=== PATIENT | male | born 1955 | race Caucasian/White ===

== ENCOUNTER → 2022-12-10 | Outpatient (CLI) | payer OTHER, SELFPAY ==
[2022-12-12 09:07] LABS: PSA, Free 0.54 ng/mL; PSA, Free % 14.6 % (.)
== END | disposition home or self-care (01) ==
PROVIDERS: PCP Family Medicine; Referring Provider Family Medicine; Visit Provider Family Medicine
DX: R97.20 Elevated prostate specific antigen [PSA] (principal)
CPT/HCPCS: 36415; 84153; 84154

== ENCOUNTER → 2023-07-27 | Outpatient (CLI) | payer OTHER, SELFPAY ==
[2023-07-27 12:59] LABS: PSA,Total- Diagnostic 3.19 ng/mL (0.0-4.0)
== END | disposition home or self-care (01) ==
LOC: BFHLAB 08:27
PROVIDERS: PCP Family Medicine; Visit Provider Urology
DX: R97.20 Elevated prostate specific antigen [PSA] (principal)
CPT/HCPCS: 36415; 84153

== ENCOUNTER 2024-06-25 15:13 | Day surgery (SDC) | payer MEDICARE, SELFPAY ==
[2024-06-25 15:41] VITALS: BP 185/101; PULSE 84; RESP 20; TEMP 37.3; O2SAT 100; BMI 37.0
--- NOTE | 2024-06-25 15:58 | EKG12_ITS ---
Test Reason : PRE OP Blood Pressure : */* mmHG Vent. Rate : 77 BPM Atrial Rate : 77 BPM P-R Int : 168 ms QRS Dur : 98 ms QT Int : 408 ms P-R-T Axes : 13 -34 55 degrees QTcB Int : 461 ms Normal sinus rhythm Left axis deviation Moderate voltage criteria for LVH, may be normal variant ( R in aVL , Eddie product ) Abnormal ECG No previous ECGs available Baseline artifact Confirmed by Bhupinder Montez ([id number]), digital editor NGOC FRANCOIS ([id number]) on 06/27/2024 7:03:22 AM Referred By: VICK Confirmed By: Bhupinder Montez
--- NOTE | 2024-06-25 16:00 | PCM.PRE.AN2 ---
ASA Classification* ASA Classification ASA Classification: 2 and E Assessment & Plan Anesthesia* Anesthesia Assessment Anesthesia Assessment: Discussed sedation and/or anesthesia options, risks, benefits, and alternatives with patient/parents/legal guardian/POA. Questions invited. The patient/parents/legal guardian/POA seems to understand and agrees to proceed with anesthesia plan. Reviewed the physical assessment, medical history, allergy history and patient home medications list prior to surgery/procedure/anesthetic and documented any changes. Performed airway and anesthesia risk assessments. Anesthesia Type Anesthesia Type: Spinal (breakfast at 1030 AM. patient aware that sedation may be less due to full stomach. 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 When Was Last Pacemaker Check QUESTION #4 FULL TEXT: You/Your Family Experience fever (hyperthermia) with Anesthesia Last Oral Intake Last Oral intake: Last Oral Intake NPO since 22:30 06/25/24 15:41 Meds taken in AM with sips of water? Meds patient instructed to take am of surgery PONV PONV - pick pack worker: PONV - pick pack worker Female HX of Motion Sickness HX of N/V After Surgery Non-Smoker Duration of Surgery greater than 60 minutes Number of Risk Factors PONV Score Height & Weight Height & Weight: Anesthesia: Height & Weight Height 6 ft 06/25/24 15:41 Weight: 124 kg 06/25/24 15:41 Body Mass Index (BMI) 37.0 06/25/24 15:41 Respiratory Assessment Respiratory Assessment - pick pack worker: Respiratory Tract Infection Hx - pick pack worker Hx Respiratory Tract Infection STOP Sleep Apnea STOP Sleep Apnea - pick pack worker: STOP Sleep Apnea - pick pack worker Hx Hypertension Hx Sleep Apnea CPAP BIPAP Do you snore loudly (louder than talking or can be heard Do you often feel tired/ fatigued/ sleepy during daytime? Has anyone observed you stop breathing during sleep? STOP Results QUESTION #5 FULL TEXT : Do you snore loudly (louder than talking or can be heard through closed doors)? Tobacco Use History Tobacco Use History - pick pack worker: Tobacco Use History - pick pack worker Tobacco Use Smoking Status Hx Tobacco Use Years Smoking Packs Smoked per Day Smoking Cessation Date was within the last 15 years Hx Smoking Cessation Date Hx Smoking Cessation Counseling Hematologic Medial History Hematologic Hx - pick pack worker: Hematologic Medical Hx - project finance analyst Hx of Blood Transfusion Hx of Transfusion in last 3 Months Date of Last Transfusion (if within last 3 months) Ever experience any problems with transfusion(s)? Specify any problems Hx of Preganancy in last 3 Months Nurse Filling Out Transfusion & Questions: Date: Time: Patient unable to answer at this time (ie. confused, unrespo /Reproduction History /Reproductive History - pick pack worker: /Reproductive Hx- pick pack worker Hx Now Gestational Age (in weeks): EDC: Hx Hx Para Hx Section SAB Active Medications Active Medications: Current Medications Generic Name Dose Route Start Last Admin Trade Name Freq PRN Reason Stop Dose Admin Sodium Chloride 1,000 mls @ 15 mls/hr 06/25/24 15:25 06/25/24 16:05 IV 07/01/24 04:44 15 mls/hr .Q48H ZAYRA Administration Protocol Lactated Ringer's 1,000 mls @ 999 mls/hr 06/25/24 16:10 IV 06/25/24 17:10 .Q1H1M ZAYRA Lactated Ringer's 1,000 mls @ 75 mls/hr 06/25/24 16:10 IV 06/26/24 05:29 .[id number] ZAYRA Insulin Human Lispro 1 - 6 unit 06/25/24 16:10 Insulin Lispro 100 Unit/Ml Insuln.Pen SC 06/25/24 18:00 Q4H PRN PRN BG>/= 180, SEE PROTOCOL Protocol PFSH Medical History Closed fracture of both maxillae Appendicitis 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 pain after total replacement of left hip joint BP (high blood pressure) Shingles Home Medications ?Medication ?Instructions ?Recorded ?Last Taken ?Type amlodipine 10 mg tablet 10 mg PO DAILY bp 02/08/14 06/25/24 History metoprolol succinate 25 mg 25 mg PO DAILY heart 02/08/14 06/25/24 History tablet,extended release 24 hr Aspirin, Baby 81 mg PO DAILY blood thin 02/11/14 Unknown History lisinopril .ROUTE blood pressure 06/25/24 06/25/24 History Allergy/AdvReac Type Severity Reaction Status Date / Time No Known Allergies Allergy Verified 06/25/24 15:29 Family History no significant family his Surgical History Status post total left knee replacement Hx of appendectomy Homelessness:: Sheltered (Patient lives at home with his ) Review of Systems (Anesthesia) ROS Narrative System reviewed and no additional complaints, except as documented.
--- NOTE | 2024-06-25 16:00 | PCM.HP.STD ---
HPI - General General Date of Admission: 06/25/24 Date of Service: 06/25/24 Chief Complaint: Left knee pain, wound dehiscence HPI Narrative CHRISTINA PERALES, is a 69 M who presents with left knee wound dehiscence. Patient is a patient of mine who had previous left total knee replacement on May 24, 2024. He was having uneventful recovery however last Tuesday 3 days ago he noted as he was walking down steps when he was leading with his right leg there was a pop in his left knee. His knee Then wanted to track out to the side and felt like it could not go back into the right place. This was associated with pain. He was able to manage general activities through the weekend and presented to physical therapy today. In physical therapy he was examined and noted to have lateral tracking the patella. Interestingly enough this is not correct with extension. When patient extended the knee it wanted to track further laterally. We elected to have him discontinue therapy and come into the office to consider retinacular repair later this week. However, when he was putting on his shoes he had a large gush of blood and when reexamined he was noted to have dehiscence of the anterior wound of the knee. Based on this we discussed moving forward with surgical intervention. His is at bedside now. Patient notes prior to this therapy was going uneventfully. Therapist also tested prior to this week therapy had progressed uneventfully. Prior to the wound dehiscence the incision looked appropriate. Patient was previously on aspirin 81 mg twice daily for DVT prophylaxis after his last surgery. 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 BP (high blood pressure) Shingles Home Medications ?Medication ?Instructions ?Recorded ?Last Taken ?Type amlodipine 10 mg tablet 10 mg PO DAILY bp 02/08/14 06/25/24 History metoprolol succinate 25 mg 25 mg PO DAILY heart 02/08/14 06/25/24 History tablet,extended release 24 hr Aspirin, Baby 81 mg PO DAILY blood thin 02/11/14 Unknown History lisinopril .ROUTE blood pressure 06/25/24 06/25/24 History Allergy/AdvReac Type Severity Reaction Status Date / Time No Known Allergies Allergy Verified 06/25/24 15:29 no significant family history Surgical History Status post total left knee replacement Hx of appendectomy Homelessness:: Sheltered (Patient lives at home with his ) ROS ROS Narrative 14 point review of systems outside was mentioned in the HPI is negative Vital Signs Vital Signs Vital Signs: 06/25/24 15:41 06/25/24 15:41 Temperature 99.1 F Temperature Source Temporal Pulse Rate 84 Respiratory Rate 20 H Respiratory Pattern Normal Blood Pressure 185/101 H Blood Pressure Mean 129 Blood Pressure Source Monitor Blood Pressure Position Semi-Fowlers Blood Pressure Location Left Arm Pulse Ox 100 Oxygen Delivery Method Room Air Weight Weight: 273 lb 5.971 oz Body Mass Index (BMI) 37.0 Physical Exam Const alert, oriented x3 and no apparent distress General Appearance: cooperative, comfortable and well kempt HEENT normocephalic Eyes PERRL Neck full ROM and No nuchal rigidity Resp normal respiratory effort Cardio Cardio Narrative: Regular distal pulse rate GI non-distended Extremity Extremity Narrative: Left lower extremity: Patient is able to extend his knee with medial pressure on the patella. Patella wants to track laterally worse with full extension. There is a medial palpable defect. There is now a 6 cm anterior wound dehiscence. There is a small eschar on the distal portion of the incision. There was no surrounding erythema prior to the dehiscence. No gross purulence drained. Skin Skin Narrative: Surgical incision is dehisced Neuro oriented x3 and CN's II-XII intact bilaterally Psych affect normal Results Imaging X-rays taken in the office were reviewed. Implants remain stable and well-fixed. No sunrise could be obtained based on the knee immobilizer. No fractures are appreciated. Patella appears to be at appropriate height compared to previous postoperative x-rays. 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 Patient is just over 4 weeks from surgery. Based on the acute nature of the wound dehiscence we elected to bring the patient to the operating theater for irrigation debridement and repair. In order to thoroughly irrigate and debride the posterior aspect of the joint will also do a polyethylene exchange. I discussed with the patient risks and benefits of the procedure which include but are not to blood loss, DVTs, PEs, nervous damage, stiffness, rerupture, infection, general risk of anesthesia including loss of life. Patient demonstrates understanding. His is at bedside and also demonstrates an understanding. We would like to proceed in acute nature based on the open nature of the prosthesis. Patient's n.p.o. status has been discussed with anesthesia. Antibiotics on-call to the operating room. Plan is to have patient in a knee immobilizer postoperatively for a minimum of 2 weeks allowing for tissue rest on the retinacular repair. Patient demonstrates understanding of the planned procedure and postoperative plan as well as his at bedside. Consent has been obtained. Will proceed with surgery this evening. (2) H/O total knee replacement:
[2024-06-25] MEDS: 0.9% Normal Saline (1000mL) 1,000 ML 15 ML IV (16:05)
[2024-06-25] MEDS: Gabapentin 600 MG Tablet PO (16:10)
[2024-06-25] MEDS: Celecoxib 200 MG Capsule 400 MG PO (16:10)
[2024-06-25] MEDS: Acetaminophen 500 MG Tablet 1000 MG PO (16:10)
--- NOTE | 2024-06-25 16:24 | PCM.POST.ANE ---
Anesthesia: Postop Eval I Current Vital Signs Temperature: 97 F Pulse Rate: 76 Blood Pressure: 134/74 Respiratory Rate: 14 Pulse Ox: 98 Oxygen Delivery Method: Room Air Assessment Airway patent: Yes Spontaneous unlabored respirations: Yes Mental status: Awake and Calm nausea: No Vomiting: No Anesthesia Complication: No Fluid Hydration Crystalloid volume administer (ml): 1,000 Total IV fluid infused: 1,000 Progress Note Anesthesia document: Postop Eval 1 completed: Yes
[2024-06-25] MEDS: Cefazolin 2 GM in Syringe 10 ML IV (16:30)
[2024-06-25] MEDS: TXA 1000mg in NS100 100ml (IVPB at Incision) 660 MG IV (16:32)
[2024-06-25 17:09] VITALS: BP 185/101; PULSE 84; RESP 20; TEMP 37.3; O2SAT 100
[2024-06-25] MEDS: TXA 1000mg in NS100 100ml (IVPB at Closure) 660 MG IV (17:44)
[2024-06-25] MEDS: JPS (Morphine 10mg/ml) OPERA.SITE (17:44)
[2024-06-25 18:10] VITALS: BP 134/74; BP 144/69; BP 185/99; PULSE 76; PULSE 77; RESP 16; TEMP 36.1; O2SAT 99
[2024-06-25 18:15] VITALS: BP 132/66; BP 185/99; PULSE 76; RESP 16; O2SAT 98
--- NOTE | 2024-06-25 18:19 | DCINST_ITS ---
Discharge Instructions Diet Discharge Diet: No restrictions DC O2, CPAP, BIPAP needs Home O2 Discharge instructions: No Dressing / Incision Discharge Activity: May Not Drive May shower in (days): 1 (With back to shower) May resume sexual activity in: 6-8 weeks Ice area for (Minutes): 20 (every hour while awake.) Weight Bearing Status: Weight bearing as tolerated (While in knee immobilizer.) Lifting Restrictions: No lifting Keep extremity elevated above heart level: Operative Extremity Additional Activity Instructions:: Wear elastic stockings for 2 weeks after your surgery. Dressing / Incision Call your doctor if your incision/area has: Continuous Slow Oozing, Sudden Increased Bleeding, Increased Pain/ Swelling, Increased Redness and Foul Smelling Discharge Call your doctor if you observe: Fever of 101 or Higher, Coldness, Increased Pain, Numbness or Tingling, Change in Color, Calf discomfort and Uncontrolled pain Change Dressing in: 5 days (and daily as needed.) Remove Dressing in: 5 days Additional Dressing/Incision Instructions:: If incision is clean dry and intact may leave the wound open to air and continue showering. If there is continued drainage continue daily dry dressing changes and keep incision clean dry and intact until there is no drainage. Follow Up Care Please Follow Up With: Benito Ponce MD When: 09/25/2020 Test Results: Test results from this visit will be discussed in further detail at your follow- up appointment, if applicable. Discharge Plan Admission Admit Date/Time: 06/25/24 15:13 Attending Provider: Benito Ponce Primary Care Provider: Bindu Elena Discharge Orders/Prescriptions Prescriptions: No Action amlodipine 10 MG tablet 10 mg PO DAILY metoprolol succinate 25 MG tablet extended release 24 hr 25 mg PO DAILY Aspirin, Baby 81 mg PO DAILY lisinopril .ROUTE Referrals / Follow Up: Bindu Elena MD [Primary Care Provider] - Disposition Disposition (needs filled in before D/C Order can be placed): Home, Self Care
[2024-06-25 18:25] VITALS: BP 132/66; BP 185/99; PULSE 81; RESP 16; TEMP 36.1; O2SAT 100
--- NOTE | 2024-06-25 18:27 | OP.PCM_ITS ---
Operative Report (Standard) Operative Information Date of Procedure: 06/25/24 Pre-Operative Diagnosis: Left total knee wound dehiscence and retinacular disruption medial Post-Operative Diagnosis: Left total knee wound dehiscence and retinacular disruption medial Surgery/Procedure Performed: Left knee irrigation debridement polyethylene exchange retinacular repair and repair of dehisced wound. supply chain coordinator: Yes Police Inspector: Saima Mulligan Tasks completed by first aid director: Closing, Dissecting tissue, Implanting device and Retracting Additional printing assistant?: No Type of Anesthesia: Spinal RN Documented Start/Stop Times: Operation Date: 06/25/24 14:50 Case Time Into Pre-Op 06/25/24 15:21 Anesthesia Start 06/25/24 16:13 Into Room 06/25/24 16:13 Procedure Start 06/25/24 16:48 Procedure End 06/25/24 18:02 Anesthesia End 06/25/24 18:05 Out of Room 06/25/24 18:05 Into Recovery 06/25/24 18:08 Into Phase II Recovery 06/25/24 18:28 Out of Recovery 06/25/24 18:28 Procedure Start Time: 16:48 Procedure Stop Time: 18:02 Select all DRAINS/GRAFTS/IMPLANTS that apply: Prosthetic device Prosthetic device details: Sweet Briar X3 polyethylene CS size 7 10 mm Special Medications: Ancef, TXA Estimated Blood Loss: 150 mL Fluids Replaced: 1000 L crystalloid Specimen collected: No Description of surgery: On date of procedure patient's left lower extremity was marked in the preoperative area. Patient was brought back to the operating room where he was transferred to the table in the supine position. Anesthesia assumed control of the C-spine and airway. Patient was set up in a spinal was administered. They were placed back in supine position. All bony problems identified well-padded. Tourniquet was placed on left upper thigh and a bump was placed underneath the left hip. After patient was adequately secured and all bony problems identified well-padded the left lower extremity was prepped in a sterile fashion. Due to the open wound the prep was done with Betadine. Surgeons then scrubbed. Upon reentering the room the left lower extremity was then draped in a standard orthopedic fashion. Timeout was called and when agreed upon the side, the site, procedure performed, patient's identity and by skin. There is a small eschar in the distal portion of the incision. This was ellipsed out. Patient had tourniquet pain at the last procedure so we elected not to use a tourniquet with his minimal bleeding on the dehisced wound. Incision extended the wound proximally distally to the extent of his normal incision. The small eschar was ellipsed out. Immediately we could see that the retinaculum had ruptured completely from top to bottom on the knee as suspected. We carefully debrided the tissues the dehisced skin edges as well as the dehisced tendon edges back to nice bleeding tissue. The polyethylene was removed after flexing the knee and the wound was kirk irrigate out 6 L normal saline under low-pressure lavage. We debrided skin subcutaneous fatty tissue tendon and muscle. Once the wound is kirk irrigated and appropriately debrided we then placed two #2 FiberWire sutures at the top corner of the retinacular repair knee was taken the range of motion knee flexed well patella tracked well. This time the wound was irrigated out with a 3-minute dilute Betadine lavage followed by Irrisept lavage followed by copious amounts of normal saline. Once this was done we commenced our closing with #2 FiberWire proximally and 2 to #2 FiberWire sutures distally at the distal pole of the patella. We then used #1 Vicryl for the remainder of the closure including interrupted sutures around the patella and running sutures proximally and distally. #1 running was used to close deep fatty layer. 2-0 Vicryl was used to close skin layer and final skin closure was done with 2-0 nylon sutures. Knee was placed in extension. Sterile silver dressing was placed. Compressive wrap was placed. Knee immobilizer was placed. Patient was then awakened anesthesia and transferred the PACU for recovery in stable condition. Postop plan: Will place the patient in knee immobilizer weightbearing as tolerated for 2 weeks. We going to give the wound incisional rest and give rest to the retinaculum. Goal will be to commence range of motion with physical director apy after his 2-week postoperative visit. Patient does have an appointment on the to review the wound healing process. Surgical Findings: Retinacular repair had ruptured entirely. Complications Complications: No Admit VTE Documentation VTE Present on Admission: No VTE Mechan Device Prophylaxis: SCD's and Thigh High JAMAL Hose VTE Pharm Prophylaxis ordered?: Yes
--- NOTE | 2024-06-25 18:45 | RAD_ITS ---
PROCEDURE: KNEE 2 VIEWS REASON FOR EXAM: Total knee arthroplasty. Pain. TECHNIQUE: 2 view(s) of the left knee COMPARISON: None. FINDINGS: There are postsurgical changes from left knee arthroplasty with no acute fracture, dislocation, or loosening. Soft tissue air is present on a postsurgical basis. There is subcutaneous edema. RAD/Knee 1 or 2 Views IMPRESSION: Postsurgical changes from left knee arthroplasty. Reading Location: [place]
[2024-06-25] MEDS: Cefazolin 1 GM/50 ML BAG IV (19:20)
[2024-06-25 19:52] VITALS: BP 185/99
[2024-06-26 19:49] VITALS: BP 134/74; PULSE 76; RESP 14; TEMP 36.1; O2SAT 98
== END 2024-06-25 19:54 | disposition home or self-care (01) ==
LOC: ACINP 18:19 → SDC 07-05 15:09
PROVIDERS: PCP Family Medicine; Visit Provider Specialist
PROC: (CPT 27301; principal; 2024-06-25 14:30)
DX: T81.31XA Disruption of external operation (surgical) wound, not elsewhere classified, initial encounter (principal); S83.242A Other tear of medial meniscus, current injury, left knee, initial encounter; X58.XXXA Exposure to other specified factors, initial encounter; Z96.652 Presence of left artificial knee joint; I10 Essential (primary) hypertension; Z79.82 Long term (current) use of aspirin; Z79.899 Other long term (current) drug therapy
CPT/HCPCS: 27486; 27420; 01402; 64445; 73560; 93005; C1776; A4216; J2405

== ENCOUNTER → 2024-07-11 | Outpatient (CLI) | payer MEDICARE, SELFPAY ==
[2024-07-11 15:53] LABS: PSA,Total- Diagnostic 3.44 ng/mL (0.00-4.00)
== END | disposition home or self-care (01) ==
LOC: BFHLAB 13:48
PROVIDERS: PCP Family Medicine; Visit Provider Urology
DX: R97.20 Elevated prostate specific antigen [PSA] (principal)
CPT/HCPCS: 36415; 84153

== ENCOUNTER → 2024-08-29 | Outpatient (CLI) | payer MEDICARE, SELFPAY ==
--- NOTE | 2024-08-29 14:53 | NEURO ---
NCS and/or EMG Patient Report Ordering Doctor: Reji Rios DATE OF SERVICE: 08/29/24 Bhupinder presents with complaints of numbness and tingling in the hands, worse on the left side. Electrodiagnostic findings: Left median motor nerve demonstrates prolonged latency with normal amplitude and reduced conduction velocity. Right median motor nerve demonstrates prolonged latency with normal amplitude and reduced conduction velocity. Ulnar motor response within normal limits bilaterally. Prolonged median?F-wave bilaterally. Prolonged median sensory latency at the wrist bilaterally, more so on the right side. Normal ulnar and radial sensory responses. Needle EMG testing was performed upper limbs. All muscles tested showed no evidence of denervation with normal motor unit action potentials. Electrodiagnostic impression: This is an abnormal study of the upper limbs 1. Electrodiagnostic findings suggestive of bilateral median mononeuropathy. This is consistent with a moderate to advanced left carpal tunnel syndrome and a moderate right carpal tunnel syndrome. 2. Electrodiagnostic evidence is noted for ulnar neuropathy, including cubital tunnel syndrome 3. No electrodiagnostic evidence is noted for cervical radiculopathy. Multi Select Codes Neurology Neurology Interp Codes: 23327-49 Musc test done w/n test comp (interp) (2) and 82509-13 Nrv cndj test 9-10 studies (interp)
== END | disposition home or self-care (01) ==
PROVIDERS: PCP Family Medicine; Referring Provider Student in an Organized Health Care Education/Training Program; Visit Provider Student in an Organized Health Care Education/Training Program
DX: R20.2 Paresthesia of skin (principal)
CPT/HCPCS: 95886; 95911

== ENCOUNTER → 2024-12-13 | Outpatient (CLI) | payer MEDICARE, SELFPAY ==
[2024-12-13 12:35] LABS: Hematocrit 46.2 % (40-54); Hemoglobin 15.5 g/dL (13.0-16.5); Immature Granulocytes Count 0.020 X10^3/uL (0.0-0.0); Mean Corp Hgb Conc 33.5 g/dL (32-36); Mean Corpuscular Volume 88.7 fL (80-94); Mean Platelet Vol. 10.3 fl (6.2-12.0); NRBC Flagged by Analyzer 0 % (0-5); Platelet Count 208 K/mm3 (150-450); RBC Distribution Width CV 13.3 % (11.6-14.6); RBC Distribution Width SD 43.0 fl (35.1-43.9); Red Blood Count 5.21 M/mm3 (4.6-6.2); White Blood Count 6.9 K/mm3 (4.4-11.0)
[2024-12-13 12:57] LABS: AST(SGOT) 27 U/L (<=37); Alanine Aminotransfer ALT/SGPT 33 U/L (<=46); Albumin, Serum 4.4 g/dL (3.4-4.8); Alkaline Phosphatase 72 U/L (40-129); Anion Gap 15 (5-15); BUN 22 mg/dL (4-19); BUN/Creat Ratio 22.5 RATIO (10-20); Calcium,Total 9.5 mg/dL (7.6-11.0); Carbon Dioxide 22.8 mmol/L (21.0-32.0); Chloride 103 mmol/L (98-108); Cholesterol 172 mg/dL (<=200); Globulin 3.4 g/dL (2.2-4.2); Glucose 118 mg/dL (70-99); Low Density Lipoprotein Calc. 114 mg/dL; Potassium 3.5 mmol/L (3.3-5.1); Triglycerides 98 mg/dL; Very Low Density Lipoprotein 20 mg/dL (5-40); cholesterol:hdl ratio screen 4.50
== END | disposition home or self-care (01) ==
LOC: BFHLAB 09:13
PROVIDERS: PCP Family Medicine; Visit Provider Family Medicine
DX: Z00.01 Encounter for general adult medical examination with abnormal findings (principal); I10 Essential (primary) hypertension; E78.5 Hyperlipidemia, unspecified; R73.01 Impaired fasting glucose
CPT/HCPCS: 36415; 80053; 80061; 83036; 85025